=== PATIENT | male | born 1940 | race Caucasian/White ===

== ENCOUNTER 2019-01-06 06:28 | Day surgery (SDC) | payer MEDICARE ==
[~2019-01-06] VITALS: Ht 167.6 cm; Wt 97.2 kg
[2019-01-06 06:48] VITALS: BP 138/71
[2019-01-06] MEDS ORDERED: normal saline 1000ml 1,000 ML IV SCH (06:50)
[2019-01-06] MEDS ORDERED: MAGN500C16 PO (07:29)
[2019-01-06] MEDS ORDERED: FLO0.4C PO (07:29)
[2019-01-06] MEDS ORDERED: ALLO100T PO (07:29)
[2019-01-06] MEDS ORDERED: TRAV5DRO EACHEYE (07:29)
[2019-01-06] MEDS ORDERED: ALEN70TA60 PO (07:29)
[2019-01-06] MEDS ORDERED: FERR-119 PO (07:29)
[2019-01-06] MEDS ORDERED: LISI40TA4 PO (07:29)
[2019-01-06 07:54] LABS: BASOPHILS % (AUTO) 0.5 % (0-1); EOSINOPHILS # (AUTO) 0.6 X10'3 (0-0.9); EOSINOPHILS % (AUTO) 11.3 % (0-6); HEMOGLOBIN 11.8 g/dl (14.0-17.9); LYMPHOCYTES # (AUTO) 1.3 X10'3 (1.1-4.8); LYMPHOCYTES % (AUTO) 23.3 % (21-51); MEAN CORPUSCULAR VOLUME 90.6 FL (78-98); MONOCYTES # (AUTO) 0.8 X10'3 (0-0.9); MONOCYTES % (AUTO) 14.2 % (2-12); NEUTROPHILS # (AUTO) 2.9 X10'3 (1.8-7.7); NEUTROPHILS % (AUTO) 50.7 % (42-75); PLATELET COUNT 272 X10'3 (140-440); RED BLOOD COUNT 4.08 X10'6 (4.70-6.10); RED CELL DISTRIBUTION WIDTH 18.4 % (11.5-14.5); WHITE BLOOD COUNT 5.6 X10'3 (4.5-11.0)
[2019-01-06 08:03] LABS: ALBUMIN 2.6 G/DL (3.4-5.0); ANION GAP 7 (8-16); BLOOD UREA NITROGEN 22 MG/DL (7-18); BUN/CREATININE RATIO 30.1 (5.4-32.0); CALCIUM 9.7 MG/DL (8.5-10.1); CHLORIDE 108 MMOL/L (99-107); CREATININE 0.73 MG/DL (0.60-1.10); GLUCOSE 106 MG/DL (70-104); POTASSIUM 3.8 MMOL/L (3.5-5.1); SODIUM 141 MMOL/L (135-145); eGFR > 90 ML/MIN
[2019-01-06] MEDS ORDERED: midazolam 2 mg/2 ml injection ONE (08:08)
[2019-01-06] MEDS ORDERED: heparin sodium, porcine/PF 100unit/ml 5ML syringe ONE (08:08)
[2019-01-06] MEDS ORDERED: LIDOcaine 1%/PF 5ML 10 MG/ML VIAL ONE (08:08)
[2019-01-06] MEDS ORDERED: fentaNYL/PF 50MCG/1 ML 2ML syringe ONE (08:09)
[2019-01-06 09:30] VITALS: BP 133/69
[2019-01-06 09:45] VITALS: BP 131/65
[2019-01-06 10:00] VITALS: BP 129/72
[2019-01-06 10:15] VITALS: BP 131/82
== END 2019-01-06 10:40 | disposition home or self-care (01) ==
LOC: SSTAY O 06:28
PROVIDERS: ATTEND Radiology Vascular & Interventional Radiology
DX: C85.93 Non-Hodgkin lymphoma, unspecified, intra-abdominal lymph nodes (principal); I10 Essential (primary) hypertension; D64.9 Anemia, unspecified; H40.9 Unspecified glaucoma; Z98.890 Other specified postprocedural states; Z88.2 Allergy status to sulfonamides; Z88.8 Allergy status to other drugs, medicaments and biological substances; Z79.899 Other long term (current) drug therapy
CPT/HCPCS: 36415; 36561; 76937; 77001; 80048; 85025; 99152; 99153; C1788; J1642; J2001; J2250; J3010; A6219; C1894; J7030

== ENCOUNTER 2020-11-11 10:58 | Day surgery (SDC) | payer MEDICARE ==
[~2020-11-11 10:58] MED LIST: ALEN70TA60 PO; ALLO100T PO; FERR-119 PO; FLO0.4C PO; LISI40TA13 PO; MAGN500C16 PO; TRAV5DRO EACHEYE
[2020-11-11] MEDS ORDERED: heparin sodium, porcine/PF 100unit/ml 5ML syringe ONE (11:14)
--- NOTE | 2020-11-11 11:29 | NUR ---
Patient seen in [facility] room, patient prepped with chlorhexidine, access with flushed ramos needle in sterile fashion. Line aspirated blood return with no resistance. Line Flushed with 20ml normal saline, port locked with 5ml Heparin 100u/ml. Patient deaccessed and bandaid placed over site. MD Aware. No fluroscopy procedure needed.
== END 2020-11-11 11:30 | disposition home or self-care (01) ==
LOC: SSTAY O 10:58
PROVIDERS: ATTEND Radiology Diagnostic Radiology
DX: T82.598A Other mechanical complication of other cardiac and vascular devices and implants, initial encounter (principal); I10 Essential (primary) hypertension; H40.9 Unspecified glaucoma; D64.9 Anemia, unspecified; E21.3 Hyperparathyroidism, unspecified; Z88.2 Allergy status to sulfonamides; Z88.8 Allergy status to other drugs, medicaments and biological substances; Z85.72 Personal history of non-Hodgkin lymphomas; Z79.899 Other long term (current) drug therapy; Y83.8 Other surgical procedures as the cause of abnormal reaction of the patient, or of later complication, without mention of misadventure at the time of the procedure; Y92.89 Other specified places as the place of occurrence of the external cause
CPT/HCPCS: 96523; J1642